=== PATIENT | female | born 1980 | race Two or more races ===

== ENCOUNTER → 2024-12-20 | Outpatient (CLI) | payer OTHER, SELFPAY ==
--- NOTE | 2024-12-20 11:00 | XR_ITS ---
Examination: Breast ultrasound, unilateral, left Date and time of exam: December 20, 2024 1055 hrs. Indications: Outside mammogram October 03, 2024 focal asymmetry 3 cm lower inner quadrant left breast Technique: Real-time delong scale ultrasonographic imaging performed left breast including all 4 quadrants as well as nipple retroareolar and axillary region. Findings: Multiple benign cysts, the largest 12:00 position 14 x 24 mm 10:00 position 30 x 27 mm No solid nodules Impression: BI-RADS Category 2: Benign findings
--- NOTE | 2024-12-20 11:45 | XR_ITS ---
Examination: Diagnostic digital mammography, unilateral, left Computer aided detection 3-D breast Tomosynthesis, unilateral Date and time of exam: 12/20/2024, 11:22 AM Comparisons: 10/03/2024 Indications: Further evaluation of abnormality medial breast seen on prior screening exam Technique: Nonmagnified MLO, CC views of the left breast have been obtained, reconstructed from 3-D Tomosynthesis images. R2 computer aided detection program utilized for evaluation of suspicious masses and/or abnormal calcifications. 3-D Tomosynthesis images obtained. Technologist: Findings: The breasts are extremely dense, which lowers the sensitivity of mammography. Multiple overlapping oval masses with obscured borders. Findings corresponds to multiple benign cysts seen on ultrasound exam. No suspicious masses or calcifications. Impression: BI-RADS category 2: Benign findings Recommend 1 year follow-up mammogram
== END | disposition home or self-care (01) ==
LOC: CDIM 10:36
PROVIDERS: PCP Physician Assistant; Referring Provider Physician Assistant; Visit Provider Physician Assistant
DX: R92.322 Mammographic fibroglandular density, left breast (principal)
CPT/HCPCS: 76641; 77061; 77065; G0279